=== PATIENT | male | born 1935 ===

== ENCOUNTER 2022-11-15 13:09 | Outpatient (CLI) | payer MEDICARE | END 2022-11-15 23:59 | disposition short-term general hospital (02) | LOC: EMS 13:09 | DX: M25.551 Pain in right hip (principal); R53.1 Weakness; R42 Dizziness and giddiness; E16.2 Hypoglycemia, unspecified; W01.0XXA Fall on same level from slipping, tripping and stumbling without subsequent striking against object, initial encounter; Y92.009 Unspecified place in unspecified non-institutional (private) residence as the place of occurrence of the external cause | CPT/HCPCS: A0425; A0427; A0888 ==